=== PATIENT | male | born 1995 | race Caucasian/White ===

== ENCOUNTER 2024-06-23 14:19 | Emergency (ER) | payer OTHER, SELFPAY ==
[2024-06-23] VITALS (9 sets, daily range): BP systolic 139–165; BP diastolic 80–105; PULSE 68–90; RESP 16; TEMP 36.4–36.6; O2SAT 96–98; BMI 29.6
--- NOTE | 2024-06-23 14:31 | PC.NURSE ---
Pt denies injury--states no falls to shoulder. States it started with reaching up for drop hook
--- NOTE | 2024-06-23 20:42 | ED_ITS ---
HPI - Extremity Injury (Upper) General Chief Complaint: Extremity Injury, Upper Stated Complaint: Right shoulder pain Time Seen by Provider: 06/23/24 20:14 Source: patient Mode of arrival: Ambulatory History of Present Illness HPI narrative: 28-year-old gentleman presents with right upper extremity neck pain that radiates to the shoulder pain that started on Wednesday and got worse throughout the weekend diagnosed with biceps tendinitis given meloxicam but has not had any significant relief of symptoms and now is having numbness tingling that radiates down to the fingertips from the shoulder region. He then localizes the pain now specifically to R shoulder region only as the maximum source of pain. Other than what is stated 14 point review of systems negative. Related Data Previous Rx's Medication Instructions Recorded cyclobenzaprine 10 mg tablet 10 mg PO TID PRN muscle spasm #30 06/23/24 tabs gabapentin 300 mg capsule 300 mg PO TID #30 caps 06/23/24 Allergies Allergy/AdvReac Type Severity Reaction Status Date / Time No Known Drug Allergies Allergy Verified 06/23/24 14:27 Review of Systems Review of Systems ROS Unobtainable: All systems reviewed & are unremarkable except as noted in HPI and below Exam Narrative Exam Narrative: GENERAL: [28] year old patient appears stated age. Well-developed patient, in mild distress. HEAD: Atraumatic. Normocephalic. EYES: Pupils equal round and reactive. Extraocular motions intact. No scleral icterus. No injection or drainage. ENT: Nose without bleeding, purulent drainage. Throat without erythema, ton sillar hypertrophy or exudate. Airway patent. NECK: Trachea midline. Non tender EXTREMITIES: No edema. R shoulder adhikari/neers/empty can test all intact +2 rad pulse cap refill <2secs BACK: Nontender without deformity or crepitance. No flank tenderness. NEURO: AOx3. SKIN: No rash or erythema of visible areas Initial Vital Signs Initial Vital Signs: Vital Signs Temperature 97.8 F 06/23/24 14:27 Pulse Rate 90 06/23/24 14:27 Respiratory Rate 16 06/23/24 14:27 Blood Pressure 152/99 H 06/23/24 14:27 Pulse Oximetry 96 06/23/24 14:27 Oxygen Delivery Method Room Air 06/23/24 14:27 Course Orders Ordered: ED Orders 06/23/24 20:44 CT UE RT wo con Stat Discontinued Medications Cyclobenzaprine HCl (Cyclobenzaprine 10 Mg Tablet) 10 mg PO NOW ONE Stop: 06/23/24 20:45 Last Admin: 06/23/24 21:09 Dose: 10 mg Documented By: INGA Dexamethasone (Dexamethasone 10 Mg/Ml Vial) 6 mg IV NOW ONE Stop: 06/23/24 20:45 Last Admin: 06/23/24 21:09 Dose: 6 mg Documented By: INGA Gabapentin (Gabapentin 300 Mg Capsule) 300 mg PO NOW ONE Stop: 06/23/24 20:45 Last Admin: 06/23/24 21:09 Dose: 300 mg Documented By: INGA Ketorolac Tromethamine (Ketorolac 30 Mg/Ml Vial) 30 mg IV NOW ONE Stop: 06/23/24 20:45 Last Admin: 06/23/24 21:09 Dose: 30 mg Documented By: INGA Vital Signs Vital signs: Vital Signs - 8 hr 06/23/24 14:27 06/23/24 19:57 06/23/24 20:01 Temperature 97.8 F 97.6 F Pulse Rate 90 74 Respiratory Rate 16 16 Blood Pressure 152/99 H 165/105 H 144/103 H Pulse Oximetry 96 98 Oxygen Delivery Method Room Air Room Air 06/23/24 20:02 06/23/24 20:30 06/23/24 20:30 Temperature Pulse Rate 75 73 Respiratory Rate Blood Pressure 140/87 Pulse Oximetry 97 96 Oxygen Delivery Method Room Air 06/23/24 21:00 06/23/24 21:30 06/23/24 21:33 Temperature Pulse Rate 75 69 68 Respiratory Rate 16 16 16 Blood Pressure 140/80 140/80 Pulse Oximetry 96 97 98 Oxygen Delivery Method Room Air MDM - Extremity Injury (Upper) Imaging Data Extremity x-ray #1: Radiologist's Impression: [address] [address] [address] Scan Report Signed Patient: Erlin Graham MR#: [id number] : 1995 Acct:[id number] Age/Sex: 28 / M Date of Service: 06/23/24 Loc: ED Accession Number: [id number] Procedure: CT UE RT wo con Ordering Provider: Diego Bales D.O. PROCEDURE: CT UE RT WO CON INDICATIONS: pain TECHNIQUE: Noncontrast 3 mm axial sections acquired of the right upper arm, with coronal and sagittal reformats. COMPARISON: None. FINDINGS: Image quality: Excellent. Bones: Right shoulder alignment is anatomic. No acute fracture or dislocation. Right scapular is intact. There is no humeral shaft fracture or dislocation. No suspicious intraosseous lesions. No cortical erosion or abnormal periosteal reaction. No abnormality is seen in visualized right ribs. Soft tissues: There is no soft tissue mass or drainable fluid collection. No significant glenohumeral joint effusion or subacromial subdeltoid bursal fluid. No calcified intra-articular loose bodies. There is no gross full-thickness rotator cuff tendon rupture. No significant rotator cuff muscle atrophy is seen on sagittal images. No axillary lymphadenopathy by size criteria. The visualized right lung field is clear. IMPRESSION: 1. Essentially unremarkable CT examination of the right shoulder joint and right humerus. No suspicious bony lesions. No fracture or dislocation. 2. No gross right shoulder soft tissue abnormalities. Visualized right lung field is clear. Dictated by: Cecil Hernandez M.D. on 06/23/2024 at 21:32 Approved by: Cecil Hernandez M.D. on 06/23/2024 at 21:41 MDM Narrative Medical decision making narrative: Vital signs, nurse triage note, medication list, previous ER visits, and all imaging modalities reviewed. Patient given Toradol Decadron Flexeril and gabapentin here. Patient will be discharged on prednisone Flexeril and gabapentin. Differential diagnosis includes cervical radiculopathy, stenosis, arthritis, strain, rotator cuff tendinitis, ligament injury. Return with worsening symptoms follow up with PCP in 1-2 weeks if no improvement in symptoms. Discharge Plan Departure Patient Disposition: Home Clinical Impression: Cervical disc disorder with radiculopathy Instructions: DI for Cervical Radiculopathy Activity Restrictions/Additional Instructions: Return with new or worsening symptoms. Follow up PCP in 1-2 weeks if no improvement in symptoms. Take your medicines as directed Prescriptions: New cyclobenzaprine 10 mg tablet 10 mg PO TID PRN (Reason: muscle spasm) Qty: 30 0RF gabapentin 300 mg capsule 300 mg PO TID Qty: 30 0RF Stand Alone Forms: Patient Portal/API/Survey
[2024-06-23] MEDS: CYCLOBENZAPRINE 10 MG TABLET PO (21:09)
[2024-06-23] MEDS: GABAPENTIN 300 MG CAPSULE PO (21:09)
[2024-06-23] MEDS: KETOROLAC 30 MG/ML VIAL IV (21:09)
[2024-06-23] MEDS: DEXAMETHASONE 10 MG/ML VIAL 6 MG IV (21:09)
== END 2024-06-23 22:25 | disposition home or self-care (01) ==
PROVIDERS: Emergency Provider Family Medicine
DX: M50.10 Cervical disc disorder with radiculopathy, unspecified cervical region (principal)
CPT/HCPCS: 73200; 96374; 96375; 99284; J1100; J1885